=== PATIENT | female | born 1930 ===

== ENCOUNTER 2017-01-19 17:40 | Observation (INO) | payer MEDICARE, BC ==
[~2017-01-19] VITALS: Ht 154.9 cm; Wt 50.4 kg
--- NOTE | ~2017-01-19 | HP ---
PATIENT'S NAME: JACK TIERNEY [facility] AGE: 86 Y [address] ROOM: [place] [address] LOCATION: [facility] ADMIT DATE: 01/19/2017 History & Physical DISCHARGE DATE: FAMILY PHYSICIAN: PHYSICIAN, UNKNOWN ATTENDING PHYSICIAN: Blessing Gannon DATE OF SERVICE: 01/19/2017 PATIENT IDENTIFICATION: Jack Tierney is an 86-year-old female. PRESENTING COMPLAINT: Fall. HISTORY OF PRESENT ILLNESS: The patient was going out for a meal with a friend this afternoon. As she tried to open the door into the restaurant, she fell and hit the back of her head. There was no loss of consciousness, but the patient may have been dazed for a minute or two. She still went ahead and had the meal and then her friend suggested that maybe she should get checked out. She was seen at the emergency room in [place] at the hospital there and a head CT scan was performed. The CT scan showed a small subdural hematoma. The patient was therefore transferred to pr for evaluation and treatment by the physician life science research assistant on duty there. The patient also sustained a scalp abrasion to the back of her head as well as an abrasion to the left elbow on account of the fall. At this time, the patient denies any pain. She really has no complaints except just the left elbow where she had the abrasion from the fall. PAST MEDICAL HISTORY: The patient has a chronic lymphocytic leukemia diagnosed in 1991 and has been well controlled for the last 25 years. She also has elevated blood pressure and anxiety since the 's . The patient is prone to colds and she wears a mask to protect herself. She has also had some mastoid surgery. She has some balance problems as well. CURRENT MEDICATIONS: 1. Crestor. 2. Mavik. 3. Diazepam. 4. Potassium. 5. Claritin. 6. Clarinex. PATIENT'S NAME: JACK TIERNEY [facility] AGE: 86 Y [address] ROOM: [address] [address] LOCATION: [facility] ADMIT DATE: 01/19/2017 History & Physical DISCHARGE DATE: FAMILY PHYSICIAN: PHYSICIAN, UNKNOWN ATTENDING PHYSICIAN: Blessing Gannon 7. Flexeril. 8. Multivitamins. 9. Calcium. ALLERGIES: PENICILLIN. SOCIAL HISTORY: The patient lives alone and is quite independent. She is . She usually walks 1-1/2 miles a day. She does not smoke and does not drink alcohol in large amounts. FAMILY HISTORY: There is no family history relevant to present symptoms. REVIEW OF SYSTEMS: A 10-point review of systems was carried out, the only abnormal finding is as described in the history of present illness. PHYSICAL EXAMINATION: GENERAL: The patient is a pleasant female who was alert and cooperative through the examination. VITAL SIGNS: Blood pressure 174/88 and pulse rate 111. NEUROLOGIC: Speech is clear and lucid. Cranial nerves, no deficits seen. Motor examination, the patient has normal strength in all the major muscle groups of her upper and lower extremities bilaterally. EXTREMITIES: There is an abrasion to the left elbow, which is bandaged up. HEAD: There is a small abrasion to the occipital area, which is not bleeding. EYES AND EARS: No evidence of trauma. RESPIRATORY: The patient is not short of breath at bedside. CARDIOVASCULAR: Heart sounds are present. REVIEW OF IMAGING STUDIES: The patient had a head CT scan performed at [facility] in [place]. The CT scan shows a small right side tentorial subdural hematoma. There is no mass effect or midline shift. The patient is not on anticoagulation. The CT report also says there is a right parietal bone and right occipital bone fracture. ASSESSMENT: An 86-year-old female with small right subdural and right parietal and occipital nondisplaced fractures, all from a ground level fall this afternoon. MEDICAL DECISION MAKING: PATIENT'S NAME: JACK TIERNEY [facility] AGE: 86 Y [address] ROOM: [id number] [place] [id number] LOCATION: [facility] ADMIT DATE: 01/19/2017 History & Physical DISCHARGE DATE: FAMILY PHYSICIAN: PHYSICIAN, UNKNOWN ATTENDING PHYSICIAN: Blessing Gannon The patient is being admitted for observation. There is no indication for neurosurgical intervention for the subdural hematoma. I anticipate she should be able to go home in the next couple of days. Care Management will assist in discharge planning. MD DERIAN GRANADOSO/modl /[id number] CC: MD BRUCE Shin MD (ALMA) D: [id number] T: [id number] HISTORY & PHYSICAL
--- NOTE | 2017-01-20 07:05 | NUR ---
PATIENT IS A 86 Y/O FEM[facility]. SHE WENT OUT YESTERDAY WITH A FRIEND TO EAT AND FELL BACKWARDS IN THE PARKING LOT AND HIT HER HEAD ON THE CONCRETE. SHE STATED THERE WAS NO LOC OR HEADACHE EXPERIENCED. SHE WENT INTO THE [place] TO EAT AND THEN HER FRIEND SUGGESTED GOING TO GET CHECKED OUT. WENT TO [facility] AND THE SCAN THERE SHOWED A HEAD BLEED. TRANSFERRED HERE. ARRIVED ON NTU AT 181. PATIENT IS A/O X 3. PERRLA. DENIES N/T/HEADACHE AT THIS TIME. MOVES ALL EXTREMITIES EQUALLY, SPONTANEOUSLY, AND TO COMMAND. VSS. ON ROOM AIR. AMBULATES 1 ASSIST.
--- NOTE | 2017-01-20 07:19 | NUR ---
Significant Event: Patient alert/oriented x 3. Perrla. Denies N/T. Had a generalized headache and experienced some nausea but no vomiting. Belched quite a bit and felt relieved. Tylenol given for headache, relief noted. No lavender use, made patient feel nauseated. Moves all extremities spontaneously and to command with equal strength. Ambulates 1 assist. Bilateral hearing aids. Hears better in right ear. Bowel movement this shift. Bowels active. No edema. IV to right AC saline locked. Gauze to left elbow intact. Follow up: Continue to monitor.
[2017-01-20] MEDS ORDERED: CRESTOR10 MG PO (08:29)
[2017-01-20] MEDS ORDERED: TRANDOLAPRIL4 MG PO (08:30)
[2017-01-20] MEDS ORDERED: K-TAB 10MEQ10 MEQ PO (08:31)
[2017-01-20] MEDS ORDERED: VALIUM5 MG PO (08:31)
[2017-01-20] MEDS ORDERED: CLARITIN-D 121 EACH PO (08:32)
[2017-01-20] MEDS ORDERED: CYCLOBENZAPRINE5 MG PO (08:33)
[2017-01-20] MEDS ORDERED: CLARINEX5 MG PO (08:33)
[2017-01-20] MEDS ORDERED: NASONEX NASAL S17 GM NOSE (08:35)
[2017-01-20] MEDS ORDERED: B COMPLETE1 EACH PO (08:36)
[2017-01-20] MEDS ORDERED: VITAMIN D2000 UNI1 PO (08:37)
[2017-01-20] MEDS ORDERED: VITAMIN C1500 MG PO (08:37)
[2017-01-20] MEDS ORDERED: VITAMIN E400 UNI2 PO (08:38)
[2017-01-20] MEDS ORDERED: CALCIUM + VITA1 EACH PO (08:39)
[2017-01-20] MEDS ORDERED: CENTRUM SILVER1 TAB PO (08:40)
--- NOTE | 2017-01-20 13:10 | NUR ---
Introduced self and role of care management to patient. She lives by herself in [place]. She states that she is able to do all her own ADL's. She has family and friends that will be available to assist as needed. She plans on returning home on discharge. She denies any needs at this time. Will continue to follow.
--- NOTE | 2017-01-20 18:23 | NUR ---
Significant Event: A/O x 3. Mild head ache. Bilat hearing aides. Lungs clear/dim on room air. SBPs 130s to 140s. Last BM 01/19. Skin tear to L) elbow, covered with gauze. IV to R) AC saline locked. 1 assist transfer, will reach for hands to steady herself. Follow up: Continue to monitor.
--- NOTE | 2017-01-21 01:22 | NUR ---
Significant Event: a/ox3. denies nubmness and tingling. moves all extremities spontaneously and to command. denies headache. right pupil 4.0 and brisk, left pupil 3.0 and brisk. up sba with gait belt. open area on left elbow dressing changed to vasoline gauze, kerlix and coband. vss on room air. slightly hypertensive. iv to right ac saline locked. k pad applied to back. takes meds whole. hard of hearing. Follow up: ct in am. possibly home today.
--- NOTE | 2017-01-21 14:23 | NUR ---
Significant Event:PATIENT IS AAOX3. RIGHT PUPIL IS SLIGHLTY LARGER THAN LEFT. NO NUMBNESS OR TINGLING. EQUAL STRENGTH. CLEAR LUNG SOUNDS. ACTIVEBS. SKIN TEAR TO ELBOW. IV R) AC TREMAYNE'D. SBA. PLANS TO BE DISCHARGE TODAY? Follow up:MONITOR LOC
--- NOTE | 2017-01-22 00:07 | NUR ---
PATIENT WAS DISCHARGED TO HOME AT 1800. SHE WAS WALKED OUT BY LORRAINE RIDLEY AND FAMILY MEMBERS. FAMILY MEMBERS DROVE HER HOME VIA PERSONAL AUTOMOBILE. VSS. VERBALIZED UNDERSTANDING OF DISCHARGE INSTRUCTIONS. IV DISCONTINUED. PATINET STABLE AND ALERT AND ORIENTED.
== END 2017-01-21 18:05 | disposition disaster alternative care site (69) ==
LOC: GNTU 18:16
PROVIDERS: ADMIT Neurological Surgery
DX: S06.5X0A Traumatic subdural hemorrhage without loss of consciousness, initial encounter (principal); F41.9 Anxiety disorder, unspecified; Z88.0 Allergy status to penicillin; W19.XXXA Unspecified fall, initial encounter
CPT/HCPCS: G0378; G8978; G8979; G8980; G8987; G8988; G8989